=== PATIENT | female | born 1970 | race Native Hawaiian/Other Pacific Islander ===

== ENCOUNTER 2019-09-01 10:01 | Emergency (ER) | payer OTHER ==
[~2019-09-01] VITALS: Ht 167.6 cm; Wt 70.8 kg
[2019-09-01 10:16] VITALS: TEMP 98.1
[2019-09-01 10:57] LABS: PLATELET COUNT 259 K/uL (152-353)
[2019-09-01 11:07] LABS: POTASSIUM 3.7 mmol/L (3.6-5.2)
[2019-09-01 14:15] VITALS: BP 112/68
== END 2019-09-01 14:15 | disposition home or self-care (01) ==
LOC: ED 10:01
PROVIDERS: Emergency Medicine Emergency Medical Services
DX: I88.0 Nonspecific mesenteric lymphadenitis (principal)
CPT/HCPCS: 36415; 80053; 81000; 81025; 83690; 85027; 96360; 96375; 99284; J2405

== ENCOUNTER 2020-03-17 12:28 | Outpatient (CLI) | payer OTHER | END 2020-03-17 22:06 | disposition home or self-care (01) | LOC: MRI 12:28 | DX: M54.17 Radiculopathy, lumbosacral region (principal) ==

== ENCOUNTER 2020-08-25 10:40 | Outpatient (CLI) | payer OTHER | END 2020-08-25 19:07 | disposition home or self-care (01) | LOC: MAMMO 10:40 | PROVIDERS: ATTEND Obstetrics & Gynecology | DX: Z12.31 Encounter for screening mammogram for malignant neoplasm of breast (principal) ==

== ENCOUNTER 2020-09-25 12:05 | Emergency (ER) | payer OTHER ==
[~2020-09-25] VITALS: Ht 162.6 cm; Wt 72.6 kg
[2020-09-25 12:50] VITALS: TEMP 98
[2020-09-25 14:30] VITALS: BP 102/57
== END 2020-09-25 14:37 | disposition home or self-care (01) ==
LOC: ED 12:05
DX: S16.1XXA Strain of muscle, fascia and tendon at neck level, initial encounter (principal)
CPT/HCPCS: 93005; 96372; 99283; J1885; J2360

== ENCOUNTER 2021-09-02 09:55 | Outpatient (CLI) | payer OTHER | END 2021-09-02 20:19 | disposition home or self-care (01) | LOC: MAMMO 09:55 | PROVIDERS: ATTEND Obstetrics & Gynecology | DX: Z12.31 Encounter for screening mammogram for malignant neoplasm of breast (principal) ==

== ENCOUNTER 2022-04-20 10:29 | Outpatient (CLI) | payer OTHER | END 2022-04-20 18:53 | disposition home or self-care (01) | LOC: US 10:29 | PROVIDERS: ATTEND Nurse Practitioner Family | DX: R60.0 Localized edema (principal) ==

== ENCOUNTER 2022-04-21 10:34 | Outpatient (CLI) | payer OTHER | END 2022-04-21 19:20 | disposition home or self-care (01) | LOC: US 10:34 | PROVIDERS: ATTEND Nurse Practitioner Family | DX: R60.0 Localized edema (principal) ==

== ENCOUNTER 2023-01-20 08:20 | Emergency (ER) | payer OTHER ==
[~2023-01-20] VITALS: Ht 162.6 cm; Wt 74.8 kg
[2023-01-20 08:25] VITALS: TEMP 97.8
[2023-01-20 08:50] LABS: PLATELET COUNT 280 K/uL (152-353)
[2023-01-20 08:56] LABS: POTASSIUM 3.5 mmol/L (3.6-5.2); SODIUM 139 mmol/L (136-145)
[2023-01-20 09:06] LABS: PARTIAL THROMBOPLASTIN TIME 26.1 SECONDS (24.5-33.6)
[2023-01-20 10:07] VITALS: BP 103/52
== END 2023-01-20 10:07 | disposition home or self-care (01) ==
LOC: ED 08:30
PROVIDERS: Emergency Medicine
DX: R52 Pain, unspecified (principal)
CPT/HCPCS: 36415; 80053; 82550; 84484; 85027; 85610; 85730; 93005; 99284